=== PATIENT | female | born 1990 | race Caucasian/White ===

== ENCOUNTER 2018-02-23 19:24 | Emergency (ER) | payer BC ==
[2018-02-23] MEDS ORDERED: PROMETHAZINE HCL 25 MG TABLET PO ONE (20:09)
[2018-02-23] MEDS ORDERED: OXYCODONE-ACETAMINOPHEN 5-325 MG TABLET PO ONE (20:09)
--- NOTE | 2018-02-23 20:11 | ER Document Report ---
ED GI/ - General Chief Complaint: Abdominal Pain Stated Complaint: ABDOMINAL PAIN Time Seen by Provider: 02/23/18 20:04 Notes: Patient is a 27-year-old female that comes to the emergency department for chief complaint of worsening and now constant left lower quadrant pain, she states pain is intermittently very sharp and causing her to vomit twice, she denies radiation to the flank, she denies fever or chills, dysuria, vaginal bleeding or discharge. She denies injury. She denies history of the same. She has had an appendectomy, she also has a history of ovarian cysts, she is on the Depo shot. TRAVEL OUTSIDE OF THE [place] IN LAST 30 DAYS: No - Related Data Allergies/Adverse Reactions: No Known Allergies Allergy (Unverified 02/23/18 19:29) Past Medical History - General Information source: Patient - Social History Smoking Status: Former Smoker Frequency of alcohol use: monthly Drug Abuse: None Lives with: Spouse/Significant other Family History: Reviewed & Not Pertinent Patient has suicidal ideation: No Patient has homicidal ideation: No - Medical History Medical History: Negative Renal/ Medical History: Denies: Hx Peritoneal Dialysis Past Surgical History: Reports: Hx Appendectomy, Hx Orthopedic Surgery - right shoulder, Hx Tonsillectomy Review of Systems - Review of Systems Constitutional: No symptoms reported EENT: No symptoms reported Cardiovascular: No symptoms reported Respiratory: No symptoms reported Gastrointestinal: See HPI Genitourinary: See HPI Female Genitourinary: See HPI Musculoskeletal: No symptoms reported Skin: No symptoms reported Hematologic/Lymphatic: No symptoms reported Neurological/Psychological: No symptoms reported Physical Exam - Vital signs Vitals: Temp Pulse Resp BP Pulse Ox 98.6 F 81 18 139/81 H 100 02/23/18 19:46 02/23/18 19:46 02/23/18 19:46 02/23/18 19:46 02/23/18 19:46 - Notes Notes: GENERAL: Alert, interacts well. No acute distress. HEAD: Normocephalic, atraumatic. EYES: Pupils equal, round, and reactive to light. Extraocular movements intact. ENT: Oral mucosa moist, tongue midline. NECK: Full range of motion. Supple. Trachea midline. LUNGS: Clear to auscultation bilaterally, no wheezes, rales, or rhonchi. No respiratory distress. HEART: Regular rate and rhythm. No murmur ABDOMEN: Tender in the mid left to lower left abdomen, no guarding or rebound tenderness, upper abdomen and right abdomen completely benign. Non-distended. Bowel sounds present in all 4 quadrants. GENITOURINARY: No discharge, cervical motion tenderness, bleeding, or other abnormality noted on pelvic examination. [place] PCT present during exam. EXTREMITIES: Moves all 4 extremities spontaneously. No edema, normal radial and dorsalis pedis pulses bilaterally. No cyanosis. BACK: no cervical, thoracic, lumbar midline tenderness. No saddle anesthesia, normal distal neurovascular exam. NEUROLOGICAL: Alert and oriented x3. Normal speech. [cranial nerves II through XII grossly intact]. PSYCH: Normal affect, normal mood. SKIN: Warm, dry, normal turgor. No rashes or lesions noted. Course - Re-evaluation Re-evalutation: Patient is tender in the left upper quadrant, this extends from the mid area all the way down to the pelvic area. She does have a history of ovarian cysts. Pelvic examination shows no tenderness, no discharge, no bleeding, no concerning findings. Urinalysis unremarkable. CBC shows leukocytosis at 18,000, she has vomited, she is not tachycardic, hypotensive, or febrile. Nonspecific. Chemistry unremarkable. Ultrasound showing trace free fluid, no specific findings, no acute findings. On reevaluation patient continues to have left lower quadrant pain extending from the mid left abdomen to the lower abdomen and pelvic area. Could be colitis. Patient has had an appendectomy. The right upper quadrant pain. No severe tenderness or rigidity suggesting perforation, she is well-appearing and I do not suspect an abscess. I did discuss possibility of a CAT scan but this was declined. Decision was made to treat her for possible colon infection with Cipro, Flagyl, and symptom management. Discussed expectations, follow-up, and return precautions in detail. Patient states understanding and agreement with plan. - Vital Signs Vital signs: Temp Pulse Resp BP Pulse Ox 98.1 F 78 18 128/76 H 98 02/24/18 00:31 02/24/18 00:31 02/24/18 00:31 02/24/18 00:31 02/24/18 00:31 - Laboratory Result Diagrams: 02/23/18 21:38 02/23/18 21:38 Laboratory results interpreted by me: 02/23/18 02/23/18 21:38 21:38 WBC 18.8 H RBC 5.65 H MCV 75 L MCH 24.9 L RDW 16.5 H Seg Neutrophils % 85.6 H Lymphocytes % 10.8 L Monocytes % 2.8 L Absolute Neutrophils 16.1 H Carbon Dioxide 21 L Discharge - Discharge Clinical Impression: Left lower quadrant pain Vomiting Qualifiers: Vomiting type: unspecified Vomiting Intractability: non-intractable Nausea presence: with nausea Qualified Code(s): R11.2 - Nausea with vomiting, unspecified Condition: Stable Disposition: HOME, SELF-CARE Additional Instructions: Your ultrasound does not show any concerning a normality's, pelvic examination does not show any concerning abnormalities, urinalysis is normal. It is possible that you had an ovarian cyst that he ruptured, however because of your workup and the area of pain on your exam we are covering you for possible infection of the large intestine. Take antibiotics as prescribed, take pain and nausea medication if needed, follow-up with primary care. Return if you worsen including severe pain, returned vomiting, fever of 100.4 or greater, swelling of the abdomen, bloody bowel movements, or any other concerning or worsening symptoms. Prescriptions: Ciprofloxacin HCl [Cipro 500 mg Tablet] 500 mg PO BID #14 tablet Hydrocodone/Acetaminophen [Arthur 5-325 mg Tablet] 1 - 2 tab PO ASDIR #8 tablet Metronidazole [Flagyl 500 mg Tablet] 500 mg PO TID #21 tablet Promethazine HCl [Phenergan 25 mg Tablet] 25 mg PO Q6H PRN #20 tablet PRN Reason:
[2018-02-23 21:00] LABS: APPEARANCE,URINE CLEAR; BILIRUBIN,URINE NEGATIVE (NEGATIVE); COLOR,URINE YELLOW; GLUCOSE, URINE NEGATIVE (NEGATIVE); KETONES,URINE NEGATIVE (NEGATIVE); LEUKOCYTE ESTERASE,URINE NEGATIVE (NEGATIVE); NITRITE,URINE NEGATIVE (NEGATIVE); PROTEIN,URINE NEGATIVE (NEGATIVE); URINE SPECIFIC GRAVITY 1.015; UROBILINOGEN,URINE NEGATIVE mg/dL (<2.0)
[2018-02-23 21:49] LABS: ABSOLUTE BASOPHILS # (AUTO) 0.1 10^3/uL (0.0-0.2); ABSOLUTE MONOCYTES (AUTO) 0.5 10^3/uL (0.1-1.4); ABSOLUTE NEUT (AUTO) 16.1 10^3/uL (1.7-8.2); BASOPHILS % (AUTO) 0.7 % (0-2); EOSINOPHILS % (AUTO) 0.1 % (0-6); HEMATOCRIT 42.2 % (36.0-47.0); HEMOGLOBIN 14.1 g/dL (12.0-15.5); LYMPHOCYTES % (AUTO) 10.8 % (13-45); MEAN CORPUSCULAR HEMOGLOBIN 24.9 pg (27.0-33.4); MEAN CORPUSCULAR HGB CONC 33.4 g/dL (32.0-36.0); MEAN CORPUSCULAR VOLUME 75 fl (80-97); MONOCYTES % (AUTO) 2.8 % (3-13); PLATELET COUNT 332 10^3/uL (150-450); RED BLOOD COUNT 5.65 10^6/uL (3.72-5.28); RED CELL DISTRIBUTION WIDTH 16.5 % (11.5-14.0); SEGMENTED NEUTROPHILS % (AUTO) 85.6 % (42-78); TOTAL CELLS COUNTED % (AUTO) 100 %; WHITE BLOOD COUNT 18.8 10^3/uL (4.0-10.5)
[2018-02-23 21:54] LABS: T.VAGINALIS (WET MOUNT) NO TRICHOMONAS SEEN; WBCS (WET MOUNT) 1+ WBCS SEEN; YEAST (WET MOUNT) NO YEAST SEEN
[2018-02-23 22:01] LABS: ALANINE AMINOTRANSFERASE 41 U/L (9-52); ALBUMIN 4.7 g/dL (3.5-5.0); ALKALINE PHOSPHATASE 103 U/L (38-126); ANION GAP 16 (5-19); ASPARTATE AMINO TRANSFERASE 23 U/L (14-36); BILIRUBIN,DIRECT 0.2 mg/dL (0.0-0.4); BILIRUBIN,TOTAL 0.4 mg/dL (0.2-1.3); BLOOD UREA NITROGEN 10 mg/dL (7-20); CALCIUM 10.1 mg/dL (8.4-10.2); CARBON DIOXIDE 21 mmol/L (22-30); CHLORIDE 103 mmol/L (98-107); GLUCOSE 108 mg/dL (75-110)
[2018-02-23 23:18] LABS: CHLAM PCR NOT DETECTED (NOT DETECT); GON PCR NOT DETECTED (NOT DETECT)
--- NOTE | 2018-02-24 00:06 | RADIOLOGY REPORT (SQ) ---
EXAM DESCRIPTION: US TRANSVAGINAL COMPLETED DATE/TME: 02/23/2018 22:08 CLINICAL HISTORY: 27 years, Female, left pelvic pain LMP is unknown. COMPARISON: None. TECHNIQUE: Complete pelvic ultrasound with transvaginal imaging. Limited color spectral Doppler imaging of the ovaries. FINDINGS: The uterus measures 6.4 x 4.5 x 3.6 cm. Endometrial thickness of 1.0 cm. No myometrial abnormalities. Small amount of free pelvic fluid. The right ovary measures 4.5 x 2.0 x 2.3 cm. The left measures 3.4 x 2.6 x 2.0 cm. No sonographic abnormalities of the ovaries. Limited color and spectral Doppler imaging of the ovaries demonstrates flow bilaterally. No large adnexal masses. IMPRESSION: 1. Small amount of free pelvic fluid may be physiologic. No other abnormalities identified. 2011 [employer]- All Rights Reserved
[2018-02-24] MEDS ORDERED: METRONIDAZOLE 500 MG TABLET PO ONE (00:14)
[2018-02-24] MEDS ORDERED: ONDANSETRON ODT 4 MG TAB (6 TAB/ER DISP) PO PRN (00:14)
[2018-02-24] MEDS ORDERED: HYDROCODONE/ACETAMINOPHEN 5-325 MG (6 TAB/ER DISP) PO PRN (00:14)
[2018-02-24] MEDS ORDERED: CIPROFLOXACIN HCL 500 MG TABLET PO ONE (00:14)
[2018-02-24 00:32] VITALS: BP 128/76
== END 2018-02-24 00:32 | disposition home or self-care (01) ==
LOC: ER 19:24
DX: R10.32 Left lower quadrant pain (principal); R11.2 Nausea with vomiting, unspecified; D72.829 Elevated white blood cell count, unspecified; R18.8 Other ascites; Z87.891 Personal history of nicotine dependence; Z90.49 Acquired absence of other specified parts of digestive tract; Z87.42 Personal history of other diseases of the female genital tract; Z79.3 Long term (current) use of hormonal contraceptives
CPT/HCPCS: 36415; 76830; 80053; 81001; 81025; 85025; 87210; 87491; 87591; 93976; 99284